=== PATIENT | female | born 1965 | race Caucasian/White ===

== ENCOUNTER 2023-07-10 18:50 | Emergency (ER) | payer OTHER, SELFPAY ==
--- NOTE | 2023-07-10 19:14 | ED.SKABFB ---
HPI - Skin/Abscess/Foreign Bdy General Chief complaint: Allergic Reaction Stated complaint: allergic reaction Time Seen by Provider: 07/11/23 00:05 Source: patient Mode of arrival: ambulatory History of Present Illness HPI narrative: 57-year-old female with a history of COPD presents with a known history of eczema and a worsening rash that is clearly evident on all extremities to include the neck and chest area and patient is currently taking antifungal cream as prescribed by her primary care provider. She denies any fevers, chills, exposure to poison david. Related Data Previous Rx's Medication Instructions Recorded cephalexin 500 mg capsule 500 mg PO BID 5 days #10 caps 07/11/23 prednisone 20 mg tablet 20 mg PO DAILY #6 tabs 07/11/23 Allergies Allergy/AdvReac Type Severity Reaction Status Date / Time cat dander Allergy Itchy Eyes Verified 07/10/23 19:14 Review of Systems Review of Systems: Pertinent positives and negatives as stated in HPI PMFSH Past Medical History Source: nursing notes reviewed Social History Social History Advance Directives: No Advance Directives Information Provided: No Physical Exam Vital Signs: Vital Signs: Last Vital Signs Temp 98.8 F 07/10/23 19:15 Pulse 102 H 07/10/23 19:15 Resp 18 07/10/23 19:15 BP 135/77 07/10/23 19:15 Pulse Ox 99 07/10/23 19:15 O2 Del Method Room Air 07/10/23 19:15 BMI result Body Mass Index 21.9 VITAL SIGNS: Reviewed. GENERAL: Well developed, well nourished, in no acute distress. HEAD: Normocephalic/atraumatic EYES: PERRLA, EOMI EARS: Ext canals without abnormality NOSE: Nares patent bilateral OROPHARYNX: no oral lesions noted, posterior pharynx clear NECK: Supple, no adenopathy LUNGS: Normal breath sounds. No adventitious sounds or accessory muscle use. SpO2<99> CARDIOVASCULAR: Regular rate and rhythm without noted murmurs ABDOMEN: Soft, non-tender, non-distended with bowel sounds. MUSCULOSKELETAL: No tenderness, deformities, or effusions noted on gross inspection. EXTREMITIES: No cyanosis, clubbing or edema. SKIN: Inspection of the skin reveals eczema dermatitis is clearly visible on all extremities with obvious skin breaks NEUROLOGIC: Alert and oriented x 4. Strength and sensation to light touch were grossly intact x 4. Course Course Course Narrative: This is a rapid medical exam. Deferred additional HPI, ROS, PE to primary provider. 57 yo female with history of eczema, COPD with complaints of itching rash which began behind her knees in May, progressed down legs/arms/trunk. Has been to PCP, [facility] ER and has been treated with doxycycline, fluconazole with no change. Has not tried prednisone. Has not seen dermatology. Will obtain labs. VSS Medical Decision Making Medical Decision Making [facility] Narrative: 57-year-old female with history and clinical presentation most consistent with exacerbation of her underlying eczema likely with the antifungal as and at this time I would considered eczema dermatitis with skin breaks. I will start patient on systemic steroids, cephalexin as well as the Benadryl to help reduce feelings of rash. I reviewed all investigations and hematologic indices are clearly supportive of this pathology with eosinophilia percentage-21.6. There is no leukocytosis or left shift, no anemia or thrombocytopenia. Chemistry indices are negative for electrolyte her liver enzyme abnormalities, and there is no CHRISTIANO. Differential Diagnosis Differential Diagnoses: The differential diagnosis associated with the presentation includes Please see the discussion above Admission/Observation Consideration of admission/observation: Escalation of care including admission/observation considered Please see the discussion above Lab Data [facility] Lab Attestation statement: I reviewed the patient's lab results. Please see the discussion above 07/10/23 20:41 07/10/23 20:41 Labs: Lab Results 07/10/23 Range/Units 20:41 WBC 5.9 (4.8-10.8) X10*3/uL RBC 4.24 (4.20-5.50) X10*6/uL Hgb 13.9 (12.0-16.0) g/dl Hct 41.5 (37.0-47.0) % MCV 97.9 (80.0-98.0) fL MCH 32.8 (27.0-33.0) pg MCHC 33.5 (31.0-35.0) g/dl RDW 11.7 (11.0-16.0) % Plt Count 338 (160-400) X10*3/uL MPV 10.6 (9.4-12.3) fL Immature Gran % (Auto) 0.2 (0.0-0.4) % Neut % (Auto) 39.1 L (45-73) % Lymph % (Auto) 25.1 (20-40) % [place] % (Auto) 12.1 H (2-11) % Eos % (Auto) 21.6 H (0-4) % Baso % (Auto) 1.9 (0-2) % Lymph # (Auto) 1.5 (1.2-4.9) X10*3/uL [place] # (Auto) 0.7 (0.1-1.2) X10*3/uL Eos # (Auto) 1.3 H (0.0-0.4) X10*3/uL Baso # (Auto) 0.1 (0.0-0.2) X10*3/uL Abs Immat Gran (auto) 0.01 (0.00-0.03) X10*3/uL Absolute Neuts (auto) 2.3 (2.0-8.3) x10*3/uL Absolute Nucleated RBC 0.000 (0.0-0.012) X10*3/uL Nucleated RBC % (auto) 0.0 (0.0-0.2) /100WBC Smear Tech's Comments VERIFIED Sodium 141 (135-145) mmol/L Potassium 4.4 (3.3-5.1) mmol/L Chloride 105 (96-108) mmol/L Carbon Dioxide 27 (22-29) mmol/L Anion Gap 13 (12-20) BUN 20 H (9-16) mg/dL Creatinine 0.85 (0.5-1.4) mg/dL Estim Creat Clear Calc 58.4 Estimated GFR > 60 Random Glucose 89 (60-115) mg/dL Calcium 10.0 (8.4-10.2) mg/dL Total Bilirubin 0.3 (0.0-1.0) mg/dL Direct Bilirubin 0.1 (0.0-0.5) mg/dL AST 37 H (5-31) U/L ALT 15 (0-31) U/L Alkaline Phosphatase 64 (39-117) U/L Total Protein 7.3 (6.5-8.0) g/dL Albumin 4.4 (3.5-5.0) g/dL Discharge Plan Discharge Clinical Impression: Eczematous dermatitis Patient Disposition: Home, Self-Care Instructions: Eczema (ED), Dermatitis (ED) Additional Instructions: 1. You will be placed on a course systemic steroids. You need to stop the antifungal 2. Start to follow typical treatment for eczema, avoid hot showers, use a thick lotion or you can consider petroleum jelly. 3. Complete the course of antibiotics as prescribed. 4. Please follow-up with your primary care provider. Return to the ER for any worsening symptoms. Prescriptions: New prednisone 20 mg tablet 20 mg PO DAILY Qty: 6 0RF cephalexin 500 mg capsule 500 mg PO BID 5 Days Qty: 10 0RF Referrals: Flaquito Chandler MD [Primary Care Provider] -
[2023-07-10 19:15] VITALS: BP 135/77; PULSE 102; RESP 18; TEMP 37.1; O2SAT 99; BMI 21.9
[2023-07-10 21:01] LABS: Basophils Absolute Auto 0.1 X10*3/uL (0.0-0.2); Basophils Percent Auto 1.9 % (0-2); Eosinophils Absolute Auto 1.3 X10*3/uL (0.0-0.4); Eosinophils Percent Auto 21.6 % (0-4); Hematocrit 41.5 % (37.0-47.0); Hemoglobin 13.9 g/dl (12.0-16.0); Imm Gran Abs Auto 0.01 X10*3/uL (0.00-0.03); Imm Gran Pct Auto 0.2 % (0.0-0.4); Lymphocytes Absolute Auto 1.5 X10*3/uL (1.2-4.9); Lymphocytes Percent Auto 25.1 % (20-40); Mean Corpuscular HGB Conc 33.5 g/dl (31.0-35.0); Mean Corpuscular Hemoglobin 32.8 pg (27.0-33.0); Mean Corpuscular Volume 97.9 fL (80.0-98.0); Mean Platelet Volume 10.6 fL (9.4-12.3); Monocytes Absolute Auto 0.7 X10*3/uL (0.1-1.2); Monocytes Percent Auto 12.1 % (2-11); Neutrophils Absolute Auto 2.3 x10*3/uL (2.0-8.3); Neutrophils Percent Auto 39.1 % (45-73); Platelet Count 338 X10*3/uL (160-400); Red Blood Count 4.24 X10*6/uL (4.20-5.50); Red Cell Distribution Width 11.7 % (11.0-16.0); SCAN SMEAR FLAG 1; White Blood Count 5.9 X10*3/uL (4.8-10.8)
[2023-07-10 21:04] LABS: MANUAL DIFF FLAG SCAN
[2023-07-10 21:12] LABS: Alanine Aminotransferase 15 U/L (0-31); Albumin Level 4.4 g/dL (3.5-5.0); Alkaline Phosphatase 64 U/L (39-117); Anion Gap 13 (12-20); Aspartate Amino Transferase 37 U/L (5-31); Bilirubin Direct 0.1 mg/dL (0.0-0.5); Bilirubin Total 0.3 mg/dL (0.0-1.0); Blood Urea Nitrogen 20 mg/dL (9-16); Carbon Dioxide 27 mmol/L (22-29); Chloride 105 mmol/L (96-108); Creatinine Clr Calc Pharmacy 58.4; Estimated Glomerular Filt Rate > 60; Glucose Random 89 mg/dL (60-115); Potassium 4.4 mmol/L (3.3-5.1); Sodium 141 mmol/L (135-145); Total Protein 7.3 g/dL (6.5-8.0)
[2023-07-10 21:24] LABS: SLIDE REVIEW VERIFIED
[2023-07-11 00:52] VITALS: BP 113/70; PULSE 78; TEMP 36.4; O2SAT 99
[2023-07-11] MEDS: cephALEXin 500 MG CAPSULE PO (00:54)
[2023-07-11] MEDS: predniSONE 20 MG TABLET PO (00:54)
[2023-07-11] MEDS: diphenhydrAMINE HCL 25 MG CAPSULE PO (00:54)
== END 2023-07-11 01:25 | disposition home or self-care (01) ==
PROVIDERS: Nurse Practitioner Family; Emergency Provider Student in an Organized Health Care Education/Training Program; PCP Internal Medicine
DX: L30.9 Dermatitis, unspecified (principal); Z79.899 Other long term (current) drug therapy
CPT/HCPCS: 36415; 80048; 80076; 85025; 99283